=== PATIENT | male | born 1980 | race Caucasian/White ===

== ENCOUNTER 2017-12-12 23:04 | Emergency (ER) | payer OTHER ==
[~2017-12-12] VITALS: Ht 172.7 cm; Wt 65.8 kg
--- NOTE | 2017-12-12 23:20 | NUR ---
PT BIBSELF COMPLAINING OF FLU LIKE SYMPTOMS X4 DAYS. PT STATES HIGHEST TEMP WAS 102.7 EARLIER TODAY, LAST DOSE OF NYQUIL WAS 2129 TODAY. PT AAOX4. RESPIRATIONS EVEN AND UNLABORED. NO ACUTE DISTRESS NOTED. PT RESTING COMFORTABLY IN BED
--- NOTE | 2017-12-12 23:30 | NUR ---
MD AT BEDSIDE FOR EVALUATION
[2017-12-12] MEDS ORDERED: IBUPROFEN 600 MG TABLET PO ONE (23:51)
--- NOTE | 2017-12-12 23:55 | NUR ---
RADIOLOGY AT BEDSIDE FOR CXR
[2017-12-13] MEDS ORDERED: IBUPROFEN 600 MG TABLET PO ONE
[2017-12-13 01:04] VITALS: BP 121/88
== END 2017-12-13 01:07 | disposition home or self-care (01) ==
LOC: ER 23:15
DX: J18.9 Pneumonia, unspecified organism (principal); F17.200 Nicotine dependence, unspecified, uncomplicated; Z90.89 Acquired absence of other organs
CPT/HCPCS: 71045; 99283; 99406; A4606; Z7610